=== PATIENT | female | born 1965 | race Caucasian/White ===

== ENCOUNTER → 2020-12-23 | Outpatient (CLI) | payer OTHER ==
[~2020-12-23] MED LIST: KLONOPIN0.5 MG PO; PHENOBARBITAL97.2 MG PO; SIMVASTATIN10 MG PO
== END ==
LOC: RAD 07:54
DX: M54.5 Low back pain (principal); M47.816 Spondylosis without myelopathy or radiculopathy, lumbar region; M43.8X6 Other specified deforming dorsopathies, lumbar region
CPT/HCPCS: 72110

== ENCOUNTER → 2021-09-01 | Outpatient (CLI) | payer OTHER | LOC: MAMO 11:05 | DX: M54.2 Cervicalgia (principal); M54.50 Low back pain, unspecified; M54.6 Pain in thoracic spine; Z12.31 Encounter for screening mammogram for malignant neoplasm of breast; M47.816 Spondylosis without myelopathy or radiculopathy, lumbar region | CPT/HCPCS: 72050; 72072; 72110; 77063; 77067 ==

== ENCOUNTER → 2021-09-29 | Outpatient (CLI) | payer OTHER | LOC: RAD 12:41 | DX: R07.89 Other chest pain (principal); R91.8 Other nonspecific abnormal finding of lung field | CPT/HCPCS: 71046 ==

== ENCOUNTER → 2021-10-15 | Outpatient (CLI) | payer OTHER | LOC: HEART 5 09:55 | DX: J84.10 Pulmonary fibrosis, unspecified (principal) | CPT/HCPCS: 94010; 94729 ==

== ENCOUNTER → 2022-01-27 | Outpatient (CLI) | payer OTHER | LOC: RAD 16:47 | DX: J98.11 Atelectasis (principal) | CPT/HCPCS: 71046 ==